=== PATIENT | female | born 1960 | race Caucasian/White ===

== ENCOUNTER 2017-03-01 11:07 | Emergency (ER) | payer OTHER ==
[~2017-03-01] VITALS: Ht 172.7 cm; Wt 96.0 kg
[2017-03-01 11:09] VITALS: BP 187/103; PULSE 92; RESP 20; TEMP 98; O2SAT 97
[2017-03-01] MEDS ORDERED: ACYC400T PO (11:52)
--- NOTE | 2017-03-01 11:56 | PD ---
HPI Chief Complaint: Hay Farmer Problem/Complaint Time Seen by Provider: 11:55 Travel History International Travel<30 days: No Contact w/Intl Traveler<30days: No Traveled to known affect area: No History of Present Illness HPI 57-year-old female that presents to the ED for evaluation of possible herpes infection. Per patient she's had this for about 2 days. Per patient and her daughter was recently admitted to the hospital for severe disseminated herpes simplest infection. Per patient she's never had a herself and she's noted for the past 2 days some vesicular lesions in her groin. Per patient she feels Like She Has a Fever. She Feels like She Is Somewhat Swollen. Per patient she notes that her daughter "gets around " so she is not surprised that she has this infection but she is concerned about herself but she's never had any intercourse since her 's disease more than 6 years ago. Per patient she herself has never had the herpes simplex before. She is concerned as to how she contracted from her as per patient "in my day they told me that he for didn' t had sex I couldnt get it ". She states that the lesions are slightly painful 2 out of 10 but is more pruritic than sharp. She states that she went to neighbor who is a nurse practitioner recommended that she comes here to get evaluated. She denies any vaginal discharge. No chest pain. No shortness of breath. No history of immunosuppression. PFSH Past Medical History Diabetes: Yes (TYPE II - METFORMIN 500 BID ) Patient Takes Glucophage: Yes Diminished Hearing: Yes (LEFT [place]) ?: Not : 7 Para: 4 Miscarriage: 3 Dilation and Curettage (D&C): Yes (uterine ablation) Tubal Ligation: Yes (1997) Social History Alcohol Use: No Tobacco Use: Yes (1PPD) Substance Use: No Allergies-Medications (Allergen,Severity, Reaction): Coded Allergies: No Known Allergies (Verified , 03/01/17) Reported Meds & Prescriptions Reported Meds & Active Scripts Active Acyclovir 400 Mg Tab 400 Mg PO 5 TIMES A DAY 7 Days Review of Systems Except as stated in HPI: all other systems reviewed are Neg Physical Exam Narrative GENERAL: SKIN: Warm and dry. Patient has a vesicular rash on the mid groin area. Pruritic and not painful. Some of the blisters are open. Purulence noted. No lymphadenopathy noted. No blisters noted on the mouth or any other area other than the groin. This was seen with female nurse present. HEAD: Atraumatic. Normocephalic. EYES: Pupils equal and round. No scleral icterus. No injection or drainage. ENT: No nasal bleeding or discharge. Mucous membranes pink and moist. Tongue is midline. No uvula deviation. NECK: Trachea midline. No JVD. CARDIOVASCULAR: Regular rate and rhythm. RESPIRATORY: No accessory muscle use. Clear to auscultation. Breath sounds equal bilaterally. GASTROINTESTINAL: Abdomen soft, non-tender, nondistended. Hepatic and splenic margins not palpable. MUSCULOSKELETAL: Extremities without clubbing, cyanosis, or edema. No obvious deformities. Full range of motion of the upper and lower extremities bilaterally. 2+ pulses bilaterally. NEUROLOGICAL: Awake and alert. No obvious cranial nerve deficits. Motor grossly within normal limits. Five out of 5 muscle strength in the arms and legs. Normal speech. PSYCHIATRIC: Appropriate mood and affect; insight and judgment normal. Data Data Last Documented VS Vital Signs Date Time Temp Pulse Resp B/P Pulse Ox O2 Delivery O2 Flow Rate FiO2 03/01/17 12:04 100 03/01/17 11:09 98.0 92 20 187/103 Room Air MDM Medical Decision Making Medical Screen Exam Complete: Yes Emergency Medical Condition: Yes Medical Record Reviewed: Yes Differential Diagnosis HSV-1 versus HSV-2 versus folliculitis versus herpes zoster Narrative Course 57-year-old female that presents to the ED for evaluation of possible herpes simplex infection. Patient was properly examined and was found to have signs and symptoms very consistent with HSV infection. Patient was reassured and this is a viral infection and it can be transmitted not sexually but through cough, showing fluids, sharing food, sharing clothes. Patient was reassured. She most likely gutter from her daughter. At this time patient's vitals and physical exam are reassuring. Patient will be treated with acyclovir. Told to follow up closely with PCP. See ED for any worsening symptoms. Diagnosis Primary Impression: HSV (herpes simplex virus) infection Patient Instructions: General Instructions Additional Instructions: Motrin or tylenol for pain. F/u with PCP. See ED if worst Take meds as needed. Med/Other Pt SpecificInfo: Prescription(s) given Scripts Acyclovir 400 Mg Dud292 Mg PO 5 TIMES A DAY 7 Days Ref 1 Prov:Yumiko,Shravanti R. MD 03/01/17 Disposition: 01 DISCHARGE HOME Condition: Stable Gasper Masters Mar 01, 2017 11:56
== END 2017-03-01 12:30 | disposition home or self-care (01) ==
LOC: NEPD 11:07
DX: B00.9 Herpesviral infection, unspecified (principal); E11.9 Type 2 diabetes mellitus without complications; Z79.84 Long term (current) use of oral hypoglycemic drugs
CPT/HCPCS: 99283

== ENCOUNTER 2017-08-25 03:34 | Emergency (ER) | payer OTHER ==
[~2017-08-25] VITALS: Ht 170.2 cm; Wt 96.0 kg
[~2017-08-25 03:34] MED LIST: ACYC400T PO
[2017-08-25 03:36] VITALS: BP 168/77; PULSE 72; RESP 16; TEMP 97.9; O2SAT 98
[2017-08-25] MEDS ORDERED: NEUR300C PO (03:54)
[2017-08-25] MEDS ORDERED: ATOR40TA16 PO (03:54)
[2017-08-25] MEDS ORDERED: HYDR50TA94 PO (03:54)
[2017-08-25] MEDS ORDERED: LEVO.125 PO (03:54)
[2017-08-25] MEDS ORDERED: NORV2.5T PO (03:54)
[2017-08-25] MEDS ORDERED: LITH300C2 PO (03:54)
[2017-08-25] MEDS ORDERED: AMOX500C PO (03:55)
--- NOTE | 2017-08-25 03:58 | PD ---
HPI Chief Complaint: ENT Complaint Time Seen by Provider: 03:54 Travel History International Travel<30 days: No Contact w/Intl Traveler<30days: No Traveled to known affect area: No History of Present Illness HPI 57-year-old white female presents to emergency Department with complaints of sore throat 3 days. She states that she has had some subjective fever. She denies any ear pain but has itching in her ears. No shortness of breath, cough , congestion, nausea, vomiting, diarrhea or urinary symptoms. Symptoms are moderate. Worse with swallowing. No alleviating factors. She is requesting capsule form of antibiotic PFSH Past Medical History Narrative Medical Fibromyalgia, hypercholesterolemia, hypertension, hypothyroidism, bipolar Diabetes: Yes (TYPE II - METFORMIN 500 BID ) Patient Takes Glucophage: No Diminished Hearing: Yes (LEFT [place]) Tetanus Vaccination: < 5 Years ?: Not : 7 Para: 4 Miscarriage: 3 Dilation and Curettage (D&C): Yes (uterine ablation) Tubal Ligation: Yes (1997) Past Surgical History Narrative Surgical Thyroidectomy Social History Alcohol Use: No Tobacco Use: Yes (1PPD) Substance Use: No Allergies-Medications (Allergen,Severity, Reaction): Coded Allergies: No Known Allergies (Verified Adverse Reaction, Unknown, 08/25/17) Reported Meds & Prescriptions Reported Meds & Active Scripts Active Amoxicillin 500 Mg Cap 500 Mg PO BID 10 Days Reported Hydroxyzine HCl 50 Mg Tab 50 Mg PO HS Neurontin (Gabapentin) 300 Mg Cap 300 Mg PO TID Norvasc (Amlodipine Besylate) 2.5 Mg Tab 2.5 Mg PO DAILY Atorvastatin (Atorvastatin Calcium) 40 Mg Tab 40 Mg PO HS [place] Carbonate 300 Mg Cap 300 Mg PO TID Synthroid (Levothyroxine Sodium) 125 Mcg Tab 125 Mcg PO DAILY Review of Systems Except as stated in HPI: all other systems reviewed are Neg Physical Exam Narrative GENERAL: Well-developed, well-nourished in no acute distress. Nontoxic appearing. HEAD: Normocephalic, atraumatic. EYES: Pupils equal round and reactive. Extraocular motions intact. No scleral icterus. No injection or drainage. ENT: TMs clear without erythema. The external auditory canals clear. Nose: clear . Posterior pharynx is pink and moist. No tonsillar edema or exudate. Uvula midline. Airway patent. NECK: Trachea midline.Supple, nontender, moves head freely. No central bony tenderness or spasm. CARDIOVASCULAR: Regular rate and rhythm without murmurs, gallops, or rubs. RESPIRATORY: Clear to auscultation. Breath sounds equal bilaterally. No wheezes , rales, or rhonchi. GASTROINTESTINAL: Abdomen soft, non-tender, nondistended. No hepato-splenomegaly , or palpable masses. No guarding. EXTREMITIES: No clubbing, cyanosis, or edema. No joint tenderness, effusion, or edema noted. BACK: Nontender without deformity or crepitance. No flank tenderness. Data Data Last Documented VS Vital Signs Date Time Temp Pulse Resp B/P (MAP) Pulse Ox O2 Delivery O2 Flow Rate FiO2 08/25/17 03:36 97.9 72 16 168/77 (107) 98 Room Air Orders Orders Ed Discharge Order (08/25/17 03:56) MDM Medical Decision Making Medical Screen Exam Complete: Yes Emergency Medical Condition: Yes Medical Record Reviewed: Yes Differential Diagnosis MDM: High Differential diagnoses: Strep throat, viral pharyngitis, mono, peritonsillar abscess, retropharyngeal abscess, Bryant's angina Narrative Course Patient will be treated for acute pharyngitis Diagnosis Primary Impression: acute pharyngitis Patient Instructions: General Instructions Additional Instructions: Rest. Force fluids. [place] gargles. Tylenol and Advil. Chloraseptic [place] Cepastat lozenge. Amoxicillin. Follow-up with a primary care doctor in one week. Return to the ER if any problems. Med/Other Pt SpecificInfo: Prescription(s) given Scripts Amoxicillin (Amoxicillin) 500 Mg Cap 500 MG PO BID for Infection for 10 Days, #20 CAP 0 Refills Prov: Tayler Dee MD 08/25/17 Disposition: 01 DISCHARGE HOME Condition: Stable Bala Baez Aug 25, 2017 03:58
== END 2017-08-25 04:07 | disposition home or self-care (01) ==
LOC: NEPD 03:34
DX: J02.9 Acute pharyngitis, unspecified (principal); E03.9 Hypothyroidism, unspecified; I10 Essential (primary) hypertension; E78.00 Pure hypercholesterolemia, unspecified; M79.7 Fibromyalgia; E11.9 Type 2 diabetes mellitus without complications; F17.200 Nicotine dependence, unspecified, uncomplicated; Z79.84 Long term (current) use of oral hypoglycemic drugs
CPT/HCPCS: 99283

== ENCOUNTER 2017-09-29 16:14 | Emergency (ER) | payer OTHER ==
[~2017-09-29] VITALS: Ht 170.2 cm; Wt 102.3 kg
[~2017-09-29 16:14] MED LIST changes: -ACYC400T PO; +AMOX500C PO; +ATOR40TA16 PO; +HYDR50TA94 PO; +LEVO.125 PO; +LITH300C2 PO; +NEUR300C PO; +NORV2.5T PO
[2017-09-29 16:17] VITALS: BP 178/95; PULSE 79; RESP 16; TEMP 98.3; O2SAT 97
[2017-09-29] MEDS ORDERED: LITH300C2 PO (17:28)
[2017-09-29] MEDS ORDERED: HYDR50CA PO (17:28)
--- NOTE | 2017-09-29 17:28 | PD ---
HPI Chief Complaint: Medication Refill Request Time Seen by Provider: 16:41 Travel History International Travel<30 days: Yes Contact w/Intl Traveler<30days: Yes Name of Country Traveled to: [place] Traveled to known affect area: No History of Present Illness HPI 57 old female with a history of bipolar disorder managed on lithium and hydroxyzine for the last 15 years reports she had an issue scheduling an appointment with her psychiatrist at [facility] and has run out of her medications. Last dose was 2 days prior. She reports she had a therapeutic lithium level approximately 2 months ago. She denies any homicidal or suicidal ideation. She has an appointment for follow-up with [facility] on . Symptom severity: Mild No aggravating or alleviating factors. PFSH Past Medical History Narrative Medical History of bipolar disorder and anxiety Diabetes: Yes (TYPE II - METFORMIN 500 BID ) Diminished Hearing: Yes (LEFT [place]) : 7 Para: 4 Miscarriage: 3 Dilation and Curettage (D&C): Yes (uterine ablation) Tubal Ligation: Yes (1997) Social History Alcohol Use: No Tobacco Use: Yes (1PPD) Substance Use: No Allergies-Medications (Allergen,Severity, Reaction): Coded Allergies: No Known Allergies (Verified Adverse Reaction, Unknown, 08/25/17) Reported Meds & Prescriptions Reported Meds & Active Scripts Active Hydroxyzine Pamoate 50 Mg Cap 50 Mg PO TID [place] Carbonate 300 Mg Cap 300 Mg PO TID Amoxicillin 500 Mg Cap 500 Mg PO BID 10 Days Reported Hydroxyzine HCl 50 Mg Tab 50 Mg PO HS Neurontin (Gabapentin) 300 Mg Cap 300 Mg PO TID Norvasc (Amlodipine Besylate) 2.5 Mg Tab 2.5 Mg PO DAILY Atorvastatin (Atorvastatin Calcium) 40 Mg Tab 40 Mg PO HS [place] Carbonate 300 Mg Cap 300 Mg PO TID Synthroid (Levothyroxine Sodium) 125 Mcg Tab 125 Mcg PO DAILY Review of Systems Except as stated in HPI: all other systems reviewed are Neg General / Constitutional: No: Fever Eyes: No: Visual changes HENT: No: Headaches Cardiovascular: No: Chest Pain or Discomfort Respiratory: No: Shortness of Breath Gastrointestinal: No: Abdominal Pain Genitourinary: No: Dysuria Musculoskeletal: No: Pain Neurologic: No: Weakness Psychiatric: No: Depression Physical Exam Narrative GENERAL: Alert and well-appearing female SKIN: Warm and dry. HEAD: Normocephalic. EYES: No injection or drainage. NECK: Supple, trachea midline. CARDIOVASCULAR: Regular rate and rhythm RESPIRATORY: No accessory muscle use. Psych: Appropriately interacting with provider. Data Data Last Documented VS Vital Signs Date Time Temp Pulse Resp B/P (MAP) Pulse Ox O2 Delivery O2 Flow Rate FiO2 09/29/17 16:17 98.3 79 16 178/95 (122) 97 MDM Medical Decision Making Medical Screen Exam Complete: Yes Emergency Medical Condition: Yes Differential Diagnosis Medication refill, history of bipolar disorder Narrative Course 57 old female with a history of bipolar disorder managed on lithium and hydroxyzine for the last 15 years reports she had an issue scheduling an appointment with her psychiatrist at [facility] and has run out of her medications. Last dose was 2 days prior. She reports she had a therapeutic lithium level approximately 2 months ago. She denies any homicidal or suicidal ideation. She has an appointment for follow-up with [facility] on 10/07/16. Diagnosis Primary Impression: Medication refill Referrals: [facility] Additional Instructions: Keep your appointment with certain [facility]. Scripts Hydroxyzine Pamoate (Hydroxyzine Pamoate) 50 Mg Cap 50 MG PO TID, #30 CAP 0 Refills Prov: Izabella Olivares 09/29/17 [place] Carbonate ([place] Carbonate) 300 Mg Cap 300 MG PO TID, #30 CAP 0 Refills Prov: Izabella Olivares 09/29/17 Disposition: 01 DISCHARGE HOME Condition: Stable Izabella Olivares Sep 29, 2017 17:28
== END 2017-09-29 17:46 | disposition home or self-care (01) ==
LOC: NEPK 16:14
DX: F31.9 Bipolar disorder, unspecified (principal); F41.9 Anxiety disorder, unspecified; E11.9 Type 2 diabetes mellitus without complications; F17.210 Nicotine dependence, cigarettes, uncomplicated; Z76.0 Encounter for issue of repeat prescription; Z79.84 Long term (current) use of oral hypoglycemic drugs
CPT/HCPCS: 99281

== ENCOUNTER 2018-01-25 15:22 | Emergency (ER) | payer OTHER ==
[~2018-01-25] VITALS: Ht 170.2 cm; Wt 97.5 kg
[~2018-01-25 15:22] MED LIST changes: +HYDR50CA PO
[2018-01-25 15:28] VITALS: BP 179/105; PULSE 76; RESP 18; TEMP 97.5; O2SAT 97
[2018-01-25 16:27] LABS: BACTERIA, URINE MANY /hpf; BILIRUBIN, URINE NEG (NEG); BLOOD, URINE NEG (NEG); GLUCOSE,URINE NEG (NEG); KETONE, URINE NEG (NEG); MUCUS URINE FEW /lpf (OCC); NITRITE,URINE NEG (NEG); PH, URINE 5.5 (5.0-8.5); SQUAMOUS EPITHELIAL CELL URINE 2 /hpf (0-5); URINE COLOR LIGHT-YELLOW (YELLW/STRAW); URINE LEUKOCYTE ESTERASE NEG (NEG)
[2018-01-25] MEDS ORDERED: MACR100C2 PO (16:35)
[2018-01-25] MEDS ORDERED: PHEN0.4T PO (16:35)
--- NOTE | 2018-01-25 16:39 | PD ---
HPI Chief Complaint: Complaint Time Seen by Provider: 16:07 Travel History International Travel<30 days: No Contact w/Intl Traveler<30days: No Traveled to known affect area: No History of Present Illness HPI This is a 57-year-old female presents today with complaints of left-sided flank pain with radiation to her suprapubic area. Patient also reports dysuria and frequency and hesitancy. She does any fevers, chills. She denies any nausea vomiting diarrhea. Patient states that she has never had a UTI however as a friend told her that her symptoms sound suspicious for UTI. There is no vaginal discharge. There is no diarrhea. There is no true abdominal pain. PFSH Past Medical History Bipolar Disorder: Yes High Cholesterol: Yes Diabetes: Yes Patient Takes Glucophage: No (controlled with diet) Diminished Hearing: Yes (LEFT [place]) Hypertension: Yes Thyroid Disease: Yes Tetanus Vaccination: Unknown Influenza Vaccination: No : 7 Para: 4 Miscarriage: 3 Ectopic : Yes Dilation and Curettage (D&C): Yes (uterine ablation) Tubal Ligation: Yes (1997) Past Surgical History Other Surgery: Yes (thyroidectomy) Social History Alcohol Use: No Tobacco Use: Yes (09/16 PPD) Substance Use: No Allergies-Medications (Allergen,Severity, Reaction): Coded Allergies: No Known Allergies (Verified Adverse Reaction, Unknown, 01/25/18) Reported Meds & Prescriptions Reported Meds & Active Scripts Active Pyridium (Phenazopyridine HCl) 100 Mg Tab 100 Mg PO Q8HR Macrobid (Nitrofurantoin Monohydrate Macrocrystals) 100 Mg Capsule 100 Mg PO DAILY Hydroxyzine Pamoate 50 Mg Cap 50 Mg PO TID Reported Hydroxyzine HCl 50 Mg Tab 50 Mg PO HS Neurontin (Gabapentin) 300 Mg Cap 300 Mg PO TID Norvasc (Amlodipine Besylate) 2.5 Mg Tab 2.5 Mg PO DAILY Atorvastatin (Atorvastatin Calcium) 40 Mg Tab 40 Mg PO HS [place] Carbonate 300 Mg Cap 300 Mg PO TID Synthroid (Levothyroxine Sodium) 125 Mcg Tab 125 Mcg PO DAILY Review of Systems Except as stated in HPI: all other systems reviewed are Neg General / Constitutional: No: Fever, Chills HENT: No: Headaches, Neck Pain Cardiovascular: No: Chest Pain or Discomfort, Palpitations Respiratory: No: Cough, Shortness of Breath Gastrointestinal: No: Nausea, Vomiting, Abdominal Pain Genitourinary: Positive: Frequency, Dysuria, Hesitancy, Flank Pain (Right) Neurologic: No: Weakness, Dizziness, Headache Physical Exam Narrative GENERAL: Well-nourished, well-developed patient. SKIN: Focused skin assessment warm/dry. HEAD: Normocephalic/atraumatic. EYES: No scleral icterus. No injection or drainage. NECK: Supple, trachea midline. No JVD or lymphadenopathy. CARDIOVASCULAR: Regular rate and rhythm without murmurs, gallops, or rubs. GASTROINTESTINAL: Abdomen soft, non-tender, nondistended. MUSCULOSKELETAL: No cyanosis, or edema. BACK: No reproducible CVA tenderness. No posterior spinous process tenderness. Data Data Last Documented VS Vital Signs Date Time Temp Pulse Resp B/P (MAP) Pulse Ox O2 Delivery O2 Flow Rate FiO2 01/25/18 15:28 97.5 76 18 179/105 (129) 97 Orders Orders Urinalysis - C+S If Indicated (01/25/18 15:37) Urine Culture (01/25/18 15:38) Labs Laboratory Tests Test 01/25/18 15:38 Urine Color LIGHT-YELLOW Urine Turbidity CLEAR Urine pH 5.5 Urine Specific [place] 1.006 Urine Protein NEG mg/dL Urine Glucose (UA) NEG mg/dL Urine Ketones NEG mg/dL Urine Occult Blood NEG Urine Nitrite NEG Urine Bilirubin NEG Urine Urobilinogen LESS THAN 2.0 MG/DL Urine Leukocyte Esterase NEG Urine RBC 1 /hpf Urine WBC 3 /hpf Urine Squamous Epithelial Cells 2 /hpf Urine Bacteria MANY /hpf Urine Mucus FEW /lpf Microscopic Urinalysis Comment CULTURE INDICATED MDM Medical Decision Making Medical Screen Exam Complete: Yes Emergency Medical Condition: Yes Differential Diagnosis Cystitis versus pyelonephritis versus renal lithiasis Narrative Course 57-year-old female presents with right-sided flank discomfort, dysuria, frequency, hesitancy, Diagnosis Primary Impression: Cystitis Additional Instructions: Drink plenty of fluids. Your urine will turn orange because of the medicine. Med/Other Pt SpecificInfo: Prescription(s) given Scripts Phenazopyridine (Pyridium) 100 Mg Tab 100 MG PO Q8HR for Dysuria, #6 TAB 0 Refills Prov: Destin Galvin MD 01/25/18 Nitrofurantoin Monohydrate Macrocrystals (Macrobid) 100 Mg Capsule 100 MG PO DAILY for Infection, #14 CAP 0 Refills Prov: Destin Galvin MD 01/25/18 Disposition: 01 DISCHARGE HOME Condition: Stable Destin Glavin MD January 25, 2018 16:38
== END 2018-01-25 17:09 | disposition home or self-care (01) ==
LOC: NEPE 15:22
DX: N30.90 Cystitis, unspecified without hematuria (principal); E11.9 Type 2 diabetes mellitus without complications; I10 Essential (primary) hypertension; E07.9 Disorder of thyroid, unspecified; E78.00 Pure hypercholesterolemia, unspecified; F31.9 Bipolar disorder, unspecified; H91.92 Unspecified hearing loss, left ear; F17.200 Nicotine dependence, unspecified, uncomplicated
CPT/HCPCS: 81001; 87086; 99283